=== PATIENT | male | born 2005 | race Caucasian/White ===

== ENCOUNTER 2025-03-03 19:31 | Emergency (ER) | payer OTHER ==
[~2025-03-03] VITALS: Ht 165.1 cm; Wt 65.0 kg
[2025-03-03 19:49] VITALS: O2SAT 99
[2025-03-03] MEDS: KETOROLAC 15MG/ML VIAL IV ONE (20:15)
[2025-03-03] MEDS: SODIUM CHLORIDE 0.9% 1,000 ML IV ONE (20:15)
[2025-03-03 20:24] LABS: BASOPHILS % 0.3 % (0.0-2.0); EOSINOPHILS % 0.6 % (0.0-5.0); HEMATOCRIT. 49.6 % (42.0-52.0); HEMOGLOBIN. 17.4 g/dL (14.0-18.0); LYMPHOCYTES % 27.2 % (20.0-50.0); MEAN PLATELET VOLUME 7.9 fl (7.4-10.4); MONOCYTES % 4.2 % (2.0-8.0); NEUTROPHILS % 67.7 % (40.0-76.0); PLATELET 311 x1000/uL (130-400); RED BLOOD CELL COUNT 5.88 mill/uL (4.7-6.1); RED CELL DISTRIBUTION WIDTH 13.6 % (11.6-14.6)
[2025-03-03 20:35] LABS: CREATININE 0.8 mg/dL (0.6-1.3); UREA NITROGEN BLOOD 11 mg/dL (9-23)
[2025-03-03 20:36] LABS: ASPARTATE AMINOTRANSFERASE 29 IU/L (<34); INR 1.0
[2025-03-03 20:37] LABS: BILIRUBIN DIRECT 0.3 mg/dL (<=3.0); BILIRUBIN TOTAL 1.3 mg/dL (0.1-1.0); PROTEIN TOTAL 8.5 g/dL (6.0-8.3)
[2025-03-03] MEDS ORDERED: CEPH500C2 MT (22:56)
[2025-03-03] MEDS ORDERED: NAPR-681 MT (22:56)
[2025-03-03 23:13] VITALS: BP 108/70; PULSE 85; RESP 13; TEMP 36.9; O2SAT 98
== END 2025-03-03 23:26 | disposition home or self-care (01) ==
LOC: ER 19:31
DX: S02.32XA Fracture of orbital floor, left side, initial encounter for closed fracture (principal); F12.90 Cannabis use, unspecified, uncomplicated; Z79.1 Long term (current) use of non-steroidal anti-inflammatories (NSAID); Y04.0XXA Assault by unarmed brawl or fight, initial encounter; Y93.89 Activity, other specified; Y92.89 Other specified places as the place of occurrence of the external cause; Y99.8 Other external cause status
CPT/HCPCS: 99285; 70450; 96374; 96361; 80076; 80048; 85025; 85610; 85730; 36415; 70486; 72125; J1885; J7030